=== PATIENT | male | born 1945 | race Caucasian/White ===

== ENCOUNTER → 2018-10-11 | Emergency (ER) | payer OTHER ==
[~2018-10-11] VITALS: Ht 182.9 cm; Wt 68.0 kg
[~2018-10-11] MED LIST: BACTROBAN OINT22 GM TP; SEPTRA DS TABLE1 TAB PO
== END ==
LOC: ER 15:15
DX: S01.82XA Laceration with foreign body of other part of head, initial encounter (principal); W01.198A Fall on same level from slipping, tripping and stumbling with subsequent striking against other object, initial encounter; Y93.89 Activity, other specified; Y92.89 Other specified places as the place of occurrence of the external cause; Y99.8 Other external cause status

== ENCOUNTER 2018-10-22 15:27 | Emergency (ER) | payer OTHER ==
[~2018-10-22] VITALS: Ht 185.4 cm; Wt 68.0 kg
== END 2018-10-22 21:23 | disposition home or self-care (01) ==
LOC: ER 15:27
DX: Z48.02 Encounter for removal of sutures (principal)